=== PATIENT | female | born 1960 ===

== ENCOUNTER 2019-06-11 12:07 | Inpatient (IN) | payer OTHER ==
[~2019-06-11] VITALS: Ht 165.1 cm; Wt 68.0 kg
[2019-06-12] MEDS ORDERED: DICY20TA PO (15:57)
[2019-06-12] MEDS ORDERED: WELLBUTRIN SR150 MG PO (15:57)
[2019-06-12] MEDS ORDERED: PROTONIX20 MG PO (15:58)
== END 2019-06-17 09:35 | disposition home or self-care (01) | DRG 743 ==
LOC: EDSTATUS 14:30 → O/R 14:30 → SURH 14:30 → CIR.AMB 06-12 14:30 → EDSTATUS 06-12 14:30 → OB/GYN 06-14 08:10 → O/R 06-14 08:10 → OB/GYN 06-14 14:30
PROVIDERS: ADMIT Obstetrics & Gynecology Gynecologic Oncology
PROC: 0UT70ZZ Resection of Bilateral Fallopian Tubes, Open Approach (ICD-10-PCS; 2019-06-14)
PROC: 0UT20ZZ Resection of Bilateral Ovaries, Open Approach (ICD-10-PCS; 2019-06-14)
PROC: 0DBU0ZZ Excision of Omentum, Open Approach (ICD-10-PCS; 2019-06-14)
PROC: 0UT90ZZ Resection of Uterus, Open Approach (ICD-10-PCS; principal; 2019-06-14 22:15)
DX: D25.1 Intramural leiomyoma of uterus (principal); D25.2 Subserosal leiomyoma of uterus; N72 Inflammatory disease of cervix uteri; N94.89 Other specified conditions associated with female genital organs and menstrual cycle; D27.1 Benign neoplasm of left ovary; K66.8 Other specified disorders of peritoneum